=== PATIENT | male | born 1970 | race Caucasian/White ===

== ENCOUNTER 2017-06-15 13:40 | Emergency (ER) | payer BC, OTHER ==
[~2017-06-15] VITALS: Ht 182.9 cm; Wt 121.5 kg
[2017-06-15 13:50] VITALS: Ht 182.9 cm; Wt 121.5 kg
[2017-06-15] MEDS ORDERED: ONDANSETRON 4 MG INJ IV STA (14:36)
[2017-06-15] MEDS ORDERED: SOD CHLORIDE 0.9% 1,000 ML IV STA (14:36)
[2017-06-15] MEDS ORDERED: morphine 4 MG/ML VIAL IV STA (14:36)
[2017-06-15] MEDS ORDERED: ACETAMINOPHEN 325 MG TAB PO ONE (15:00)
[2017-06-15 15:16] LABS: BASOPHILS % 0.2 % (0.0-2.0); EOSINOPHILS % 0.1 % (0.0-7.0); HEMATOCRIT 43.6 % (42.0-52.0); HEMOGLOBIN 15.2 g/dl (14.0-18.0); LYMPHOCYTES # 1.4 10^3/ul (0.8-2.9); LYMPHOCYTES % 7.3 % (15.0-51.0); MEAN CORPUSCULAR HEMOGLOBIN 31.1 pg (29.0-33.0); MEAN CORPUSCULAR HGB CONC 34.9 g/dl (32.0-37.0); MEAN CORPUSCULAR VOLUME 89.3 fl (82.0-101.0); MEAN PLATELET VOLUME 10.9 fl (7.4-10.4); MONOCYTE # 1.3 10^3/ul (0.3-0.9); NEUTROPHIL # 15.8 10^3/ul (1.6-7.5); NEUTROPHILS % 84.2 % (39.0-77.0); PLATELET COUNT 257 10^3/UL (140-415); RED BLOOD COUNT 4.88 10^6/ul (4.70-6.10); RED CELL DISTRIBUTION WIDTH 12.5 % (11.5-14.5); WHITE BLOOD COUNT 18.8 10^3/ul (4.8-10.8)
[2017-06-15 15:21] LABS: ADD UMIC NO; UR ASCORBIC ACID NEGATIVE (NEGATIVE); UR BILIRUBIN (Dip) NEGATIVE (NEGATIVE); UR BLOOD (Dip) NEGATIVE (NEGATIVE); UR CLARITY CLEAR (CLEAR); UR COLOR YELLOW (YELLOW); UR GLUCOSE (Dip) NEGATIVE (NEGATIVE); UR KETONES (Dip) NEGATIVE (NEGATIVE); UR LEUKOCYTE ESTERASE (Dip) NEGATIVE Leu/ul (NEGATIVE); UR NITRITE (Dip) NEGATIVE (NEGATIVE); UR SPECIFIC GRAVITY (Dip) 1.016 (1.003-1.030); UR TOTAL PROTEIN (Dip) NEGATIVE (NEGATIVE); UR UROBILINOGEN (Dip) NEGATIVE (NEGATIVE)
[2017-06-15 15:32] LABS: ALBUMIN 4.5 g/dl (3.3-4.9); BILIRUBIN,INDIRECT 0.7 mg/dl (0-1.1); BILIRUBIN,TOTAL 0.7 mg/dl (0.2-1.3); CALCIUM 9.4 mg/dl (8.4-10.2); CREATININE 0.98 mg/dl (0.61-1.24); POTASSIUM 4.3 mmol/L (3.5-5.1); TOTAL PROTEIN 8.3 g/dl (6.1-8.1)
[2017-06-15 15:33] LABS: ALBUMIN/GLOBULIN RATIO 1.18
--- NOTE | 2017-06-15 16:15 | RADRPT ---
PROCEDURE: CT Abdomen and Pelvis without contrast. CLINICAL INDICATION: Nausea. Dehydration. TECHNIQUE: CT scan of the abdomen and pelvis without contrast was performed on a multidetector hig h-resolution CT scanner. The patient was scanned without intravenous contrast. Coronal and sagittal reformatted images were obtained from the axial source images. Images were reviewed on a high-resol [employer] PACS workstation. The total exam CTDI equals 22.92 mGy and the total exam DLP equals 1704.53 m Gy-cm. One or more of the following dose reduction techniques were used: Automated exposure control. Adjustment of the mA and/or kV according to patient size. Use of iterative reconstruction technique. COMPARISON: None FINDINGS: CT abdomen: The lung bases are clear. The heart size is normal, without pericardial thickening or effusion. There is hepatomegaly with fatty infiltration. The spleen is normal in size and homogeneous in densi ty. The stomach is partially collapsed, but is grossly unremarkable. The pancreas as visualized is normal. The gallbladder is unremarkable. There is no evidence for biliary dilatation. The adrenal glands are symmetric and normal. The kidneys are symmetrically unremarkable as well. No renal libia culus or obstructive uropathy or mass lesion is seen. The aorta is of normal caliber. Aortic vascular calcifications are present. There is no retroperit cotto lymphadenopathy. The nathanael hepatis region is clear. The bowel and mesentery, as visualized, are equally unremarkable. There is approximately 2.7 cm subcutaneous hypodensity in the midline lowe r back likely representing a sebaceous cyst. CT pelvis: The small bowel loops situated within the pelvis are unremarkable. The appendix is normal. The pel jo ann organs are normal. The pelvic sidewalls and inguinal regions are clear. The sigmoid colon and rectum are unremarkable. No mass, lymphadenopathy, or free fluid is seen. No acute inflammation is seen. No osteolytic or osteoblastic lesion is detected. IMPRESSION: 1. No mass, lymphadenopathy, or focal acute inflammatory process is identified. 2. Hepatomegaly with fatty infiltration. 3. Normal appendix. 4. Scattered aortoiliac atherosclerosis. RPTAT: BB .Deacon Chacon MD, MD Date Time Electronically viewed and signed by .Deacon Chacon MD, on 06/15/2017 16:14 .O/
--- NOTE | 2017-06-15 16:55 | RADRPT ---
PROCEDURE: Right Upper Quadrant Ultrasound. CLINICAL INDICATION: Right-sided abdominal pain TECHNIQUE: Multiple real-time images were acquired of the patient's right upper quadrant abdomen a nd retroperitoneum utilizing a high resolution transducer. COMPARISON: None FINDINGS: The liver measures 19.0 cm, and demonstrates moderately increased echogenicity. The main portal vein is patent with proper directional flow. There is no intrahepatic biliary ductal dilatation. The ext rahepatic common bile duct measures 4 mm. The gallbladder is without stones, wall thickening, or pericholecystic fluid. The visualized pancreas is unremarkable. The right kidney measures 10.3 cm and demonstrates normal echotexture. There is no right renal calcu arash or hydronephrosis. The visualized abdominal aorta and IVC are grossly unremarkable. IMPRESSION: Hepatomegaly with moderate fatty infiltration. No cholelithiasis or acute cholecystitis. Normal CBD. No right-sided hydronephrosis. RPTAT: EE Physician Shruti Date Time Electronically viewed and signed by Physician Shruti on 06/15/2017 16:55 /
[2017-06-15] MEDS ORDERED: FAMO40TA52 PO (17:00)
[2017-06-15] MEDS ORDERED: ONDA4TAB14 PO (17:04)
--- NOTE | 2017-06-15 17:04 | ERD ---
ER Documentation Chief Complaint Date/Time DATE: 06/15/17 TIME: 17:01 Chief Complaint r.side flank pain with fever x 2 days HPI 47-year-old male presents with right flank pain for the past 2 days. He is also had a fever at home and he has been taking Tylenol and amoxicillin that he fell in his house. He states that Monday he went to the bathroom and at the end of his void he has some burning. He has had urinary frequency but no blood in the urine. He admits to nausea but no vomiting or diarrhea. No chest pain or shortness of breath. No palpitations. At this time he denies pain. ROS All systems reviewed and are negative except as per history of present illness. Medications Home Meds Active Scripts Famotidine* (Famotidine*) 40 Mg Tablet, 40 MG PO BID, #60 TAB Prov:ARLIN LAGUNAS PA-C 06/15/17 Allergies Allergies: Coded Allergies: No Known Allergy (Unverified , 06/15/17) PMhx/Soc History of Surgery: No Anesthesia Reaction: No Hx Neurological Disorder: Yes (migraines) Hx Respiratory Disorders: No Hx Cardiac Disorders: No Hx Psychiatric Problems: No Hx Miscellaneous Medical Probl: No Hx Alcohol Use: Yes (occas) Hx Substance Use: No Hx Tobacco Use: No Smoking Status: Former smoker FmHx Family History: No diabetes Physical Exam Vitals Vital Signs Date Time Temp Pulse Resp B/P Pulse Ox O2 Delivery O2 Flow Rate FiO2 06/15/17 13:50 99.3 112 18 133/87 97 Physical Exam INITIAL VITAL SIGNS: Reviewed by me GENERAL: Awake, alert and oriented x 4, well appearing, nontoxic, speaking in full sentences. No acute distress HEAD: Atraumatic NECK: Supple. No masses. Full range of motion. No meningismus. No midline tenderness. RESPIRATORY: Clear to auscultation bilaterally. Symmetric chest wall rise. No wheezing or rales. No accessory muscle use. CV: Regular rate and rhythm. No murmurs, rubs, or gallops. ABDOMEN: Soft, non-distended. Nontender. Negative [place]. Negative [place]neys point tenderness. No CVA tenderness bilaterally. No guarding. No rebound. : Deffered. Result Diagram: 06/15/17 1506 06/15/17 1506 Results 24 hrs Laboratory Tests Test 06/15/17 14:55 06/15/17 15:06 Urine Color YELLOW Urine Clarity CLEAR Urine pH 5.0 Urine Specific Triangle 1.016 Urine Ketones NEGATIVEmg/dL Urine Nitrite NEGATIVEmg/dL Urine Bilirubin NEGATIVEmg/dL Urine Urobilinogen NEGATIVEmg/dL Urine Leukocyte Esterase NEGATIVELeu/ul Urine Hemoglobin NEGATIVEmg/dL Urine Glucose NEGATIVEmg/dL Urine Total Protein NEGATIVEmg/dl White Blood Count 18.810^3/ul Red Blood Count 4.8810^6/ul Hemoglobin 15.2g/dl Hematocrit 43.6% Mean Corpuscular Volume 89.3fl Mean Corpuscular Hemoglobin 31.1pg Mean Corpuscular Hemoglobin Concent 34.9g/dl Red Cell Distribution Width 12.5% Platelet Count 09396^3/UL Mean Platelet Volume 10.9fl Neutrophils % 84.2% Lymphocytes % 7.3% Monocytes % 7.0% Eosinophils % 0.1% Basophils % 0.2% Nucleated Red Blood Cells % 0.0/100WBC Neutrophils # 15.810^3/ul Lymphocytes # 1.410^3/ul Monocytes # 1.310^3/ul Eosinophils # 0.010^3/ul Basophils # 0.010^3/ul Nucleated Red Blood Cells # 0.010^3/ul Sodium Level 143mmol/L Potassium Level 4.3mmol/L Chloride Level 101mmol/L Carbon Dioxide Level 26mmol/L Anion Gap 20 Blood Urea Nitrogen 7mg/dl Creatinine 0.98mg/dl Glucose Level 116mg/dl Calcium Level 9.4mg/dl Total Bilirubin 0.7mg/dl Direct Bilirubin 0.00mg/dl Indirect Bilirubin 0.7mg/dl Aspartate Amino Transf (AST/SGOT) 11IU/L Alanine Aminotransferase (ALT/SGPT) 27IU/L Alkaline Phosphatase 76IU/L Total Protein 8.3g/dl Albumin 4.5g/dl Globulin 3.80g/dl Albumin/Globulin Ratio 1.18 Lipase 31U/L Current Medications Medications (Trade) Dose Ordered Sig/Na Route PRN Reason Start Time Stop Time Status Last Admin Dose Admin Sodium Chloride (NS) 1,000 ml @ 1,000 mls/hr Q1H STAT IV 06/15/17 14:36 06/15/17 15:35 DC 06/15/17 15:06 Morphine Sulfate (morphine) 4 mg ONCE STAT IV 06/15/17 14:36 06/15/17 14:37 DC Ondansetron HCl (Zofran Inj) 4 mg ONCE STAT IV 06/15/17 14:36 06/15/17 14:37 DC Acetaminophen (Tylenol Tab) 650 mg ONCE ONCE PO 06/15/17 15:00 06/15/17 15:01 DC 06/15/17 15:04 Procedures/MDM 47-year-old male presents complaining of fever and flank pain. The differential diagnosis includes but is not limited to appendicitis, cholelithiasis, cholecystitis, pancreatitis, hepatitis, gastritis, peptic ulcer disease, bowel obstruction, diverticulitis, renal disease including stones, torsion, AAA, pyelonephritis, and others. He has a low-grade temperature 99.3 and tachycardia of 112. He was given IV fluids and pain medication and nausea medication. His CBC showed elevated white blood cell count greater than 18 otherwise his labs and urine are unremarkable. CT scan was ordered and it was also negative for any acute intra-abdominal or intrapelvic abnormality. I reviewed these findings with Dr. Giang who recommended gallbladder ultrasound which was performed and also showed no cholelithiasis or cholecystitis. I reviewed this again with Dr. Giang and we agree patient is suitable outpatient management with close follow with primary care. He was given copy of all of his labs and CT and ultrasound reports we can follow up with primary care as well as prescription for zofran. Patient counseled regarding my diagnostic impression and care plan. Prior to discharge all questions answered. Pt agrees with treatment plan and understands strict return precautions. Pt is instructed to follow up with primary care provider within 24-48 hours. Precautionary instructions provided including instructions to return to the ER if not improving or for any worsening or changing symptoms or concerns. Departure Diagnosis: Primary Impression: Abdominal pain Condition: Stable Patient Instructions: Abdominal Pain Additional Instructions: Call your primary care doctor TOMORROW for an appointment during the next 1-2 days.See the doctor sooner or return here if your condition worsens before your appointment time. ARLIN LAGUNAS PA-C Jun 15, 2017 17:04
[2017-06-15 17:10] VITALS: BP 130/70; PULSE 84; RESP 18; TEMP 99
== END 2017-06-15 17:10 | disposition home or self-care (01) ==
LOC: FTE 13:40
DX: R10.9 Unspecified abdominal pain (principal); Z87.891 Personal history of nicotine dependence
CPT/HCPCS: 36415; 74176; 76705; 80053; 81003; 83690; 85025; 96374; 96375; 99285; J7030; J2270; J2405